=== PATIENT | female | born 1970 | race American Indian/Alaskan Native ===

== ENCOUNTER 2019-10-21 11:21 | Outpatient (CLI) | payer OTHER ==
--- NOTE | 2019-10-21 12:31 | Mammography Report ---
DIGITAL DIAGNOSTIC MAMMOGRAM WITH CAD, -- 10/21/2019 INDICATION: Left breast lump. TECHNIQUE: Digital bilateral mammographic imaging was performed. This examination was interpreted with the benefit of Computer-aided Detection analysis. COMPARISON: None available. FINDINGS: Breast Density: The breasts are heterogeneously dense, which may obscure small masses. There is no evidence of dominant mass, suspicious calcifications or architectural distortion in the r ight breast. In the 11-12:00 position of the anterior depth of the left breast is an ovoid mass measu ring 2.4 x 1.8 cm. No additional significant abnormality of the left breast. IMPRESSION: Incompletely evaluated left breast mass as above. A left breast ultrasound is recommended for further evaluation. Recommended Follow-Up: Ultrasound Category 0: Incomplete. Needs additional imaging evaluation and/or prior mammograms for comparison. A "normal" or negative report should not discourage follow up or biopsy of a clinically significant f inding. A written summary of these findings will be mailed to the patient. The patient will be entered into a mammography reporting system which will generate a reminder letter for the patient's next appointmen t at the appropriate interval. According to the [employer], yearly mammograms are recommended starting at age 40 and continuing as long as a woman is in good health. Breast MRI is recommended for women with an francisco roximately 20-25% or greater lifetime risk of breast cancer, including women with a strong family his tory of breast or ovarian cancer and women who have been treated for Hodgkin's disease. Signer Name: Rohan Bartholomew MD Signed: 10/21/2019 12:26 PM Workstation Name: [employer]
== END 2019-10-21 11:22 | disposition home or self-care (01) ==
LOC: SPVWC 11:21
PROVIDERS: ATTEND Internal Medicine
DX: N63.22 Unspecified lump in the left breast, upper inner quadrant (principal)
CPT/HCPCS: 77066

== ENCOUNTER 2019-11-03 13:02 | Outpatient (CLI) | payer OTHER ==
--- NOTE | 2019-11-03 17:07 | Ultrasound Report ---
EXAMINATION: Left Limited Breast Ultrasound, 11/03/2019 INDICATION: Left palpable abnormality, mammographic density COMPARISON: Bilateral mammogram 10/21/2019 FINDINGS: Targeted ultrasound evaluation was performed of the area of interest. In the area of concer n at 10:00, 1 cm from the nipple, a benign 2 cm simple cyst is seen. In the 9:00 position, 3 cm from the nipple, incidental note is made of an ovoid mildly bilobed wider than tall well-defined 13 mm aminta id nodule. No shadowing or vascularity are seen. This appears to correspond to a density seen on 6 cc view medially in the mid depth of the left breast, likely in the mid breast on MLO view. IMPRESSION: 1. Palpable and earlier mammographic areas of concern conform to a benign simple cyst 2. Probable fibroadenoma in the medial left breast Follow up recommendation: Left breast ultrasound follow-up in 6 months BIRADS: 3: Probably benign Signer Name: Kash Rodriguez MD Signed: 11/03/2019 5:03 PM Workstation Name: [id number]
== END 2019-11-03 13:03 | disposition home or self-care (01) ==
LOC: US 13:02
PROVIDERS: ATTEND Internal Medicine
DX: N60.02 Solitary cyst of left breast (principal)

== ENCOUNTER 2020-02-10 08:57 | Outpatient (CLI) | payer OTHER ==
--- NOTE | 2020-02-10 10:34 | XRay Report ---
BOTH SHOULDERS 6 VIEWS INDICATION / CLINICAL INFORMATION: BACK PAIN. COMPARISON: None available. FINDINGS: Very minimal degenerative changes. No abnormal soft tissue calcification. No fracture, dislocation or other skeletal abnormality. LUMBAR SPINE 3 views INDICATION / CLINICAL INFORMATION: BACK PAIN. COMPARISON: None available. FINDINGS: No significant degenerative changes. No fracture, subluxation or other skeletal abnormality. CERVICAL SPINE 3 VIEWS INDICATION / CLINICAL INFORMATION: BACK PAIN. COMPARISON: None available. 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 Appears to be minimal spondylosis at C6-7. No fracture, subluxation or other significant abnormality. Signer Name: Juan Khan MD Signed: 02/10/2020 10:29 AM Workstation Name: [email or web address]
== END 2020-02-10 08:58 | disposition home or self-care (01) ==
LOC: XRAY 08:57
PROVIDERS: ATTEND Internal Medicine
DX: M47.812 Spondylosis without myelopathy or radiculopathy, cervical region (principal); M19.012 Primary osteoarthritis, left shoulder; M19.011 Primary osteoarthritis, right shoulder; G43.109 Migraine with aura, not intractable, without status migrainosus
CPT/HCPCS: 72040; 72100